=== PATIENT | male | born 1995 | race Caucasian/White ===

== ENCOUNTER 2017-04-08 11:43 | Emergency (ER) | payer SELFPAY ==
[~2017-04-08] VITALS: Ht 165.1 cm; Wt 54.4 kg
[~2017-04-08 11:43] MED LIST: APAP/HYDROCODON1 T13 PO; CLINDAMYCIN HC300 MG PO; COL100 PO; FLA250 PO; IBUPROFEN400 MG PO; KEFLEX500 MG PO; LAC PO
[2017-04-08 11:58] VITALS: BP 100/73
== END 2017-04-08 13:46 | disposition left against medical advice (07) ==
LOC: ED 11:43
DX: Z53.21 Procedure and treatment not carried out due to patient leaving prior to being seen by health care provider (principal)

== ENCOUNTER 2017-10-07 09:20 | Emergency (ER) | payer MEDICAID ==
[~2017-10-07] VITALS: Ht 167.6 cm; Wt 59.0 kg
[2017-10-07 09:28] VITALS: Ht 167.6 cm; Wt 59.0 kg
[2017-10-07 12:52] VITALS: BP 120/74
== END 2017-10-07 12:52 | disposition home or self-care (01) ==
LOC: ED 09:20
DX: S93.401A Sprain of unspecified ligament of right ankle, initial encounter (principal); S16.1XXA Strain of muscle, fascia and tendon at neck level, initial encounter; S20.212A Contusion of left front wall of thorax, initial encounter; M25.561 Pain in right knee; Z90.49 Acquired absence of other specified parts of digestive tract; W22.8XXA Striking against or struck by other objects, initial encounter; Y93.31 Activity, mountain climbing, rock climbing and wall climbing; Y92.89 Other specified places as the place of occurrence of the external cause; Y99.8 Other external cause status
CPT/HCPCS: J1885

== ENCOUNTER 2017-11-24 17:54 | Emergency (ER) | payer MEDICAID ==
[~2017-11-24] VITALS: Ht 165.1 cm; Wt 55.3 kg
[2017-11-24 18:09] VITALS: BP 105/70; Ht 165.1 cm; Wt 55.3 kg
== END 2017-11-24 22:45 | disposition home or self-care (01) ==
LOC: ED 17:54
DX: J20.9 Acute bronchitis, unspecified (principal); Z90.89 Acquired absence of other organs
CPT/HCPCS: J7512; J7613

== ENCOUNTER 2018-12-20 12:34 | Emergency (ER) | payer MEDICAID ==
[~2018-12-20] VITALS: Ht 165.1 cm; Wt 61.2 kg
[2018-12-20 12:50] VITALS: Ht 165.1 cm; Wt 61.2 kg
[2018-12-20 13:36] LABS: PLATELET COUNT 233 x10^3mcL (130-400); RED CELL DISTRIBUTION WIDTH 12.1 % (11.5-14.5)
[2018-12-20 13:38] LABS: CALCIUM 9.4 mg/dL (8.5-10.1); CARBON DIOXIDE 27.4 mmol/L (21-32); CHLORIDE SERUM 101 mmol/L (98-107); CREATININE SERUM 0.8 mg/dL (0.7-1.3); GFR1 > 60 mL/min; GLUCOSE SERUM 113 mg/dL (74-106); POTASSIUM SERUM 4.9 mmol/L (3.5-5.1); SODIUM SERUM 138 mmol/L (136-145)
[2018-12-20 13:44] LABS: ALBUMIN 4.5 g/dL (3.4-5.0); ALKALINE PHOSPHATASE 89 U/L (46-116); ALT/SGPT 34 U/L (16-63); AST/SGOT 29 U/L (15-37); BILIRUBIN TOTAL 0.6 mg/dL (0.20-1.00)
[2018-12-20 13:45] LABS: TOTAL PROTEIN, SERUM 8.3 g/dL (6.4-8.2)
[2018-12-20 13:49] LABS: BASOPHIL % 2.8 % (0-2)
[2018-12-20 15:03] LABS: AMPHETAMINE QUAL UR NONE DETECTED (See below)
[2018-12-20 15:58] VITALS: BP 119/76
== END 2018-12-20 15:58 | disposition home or self-care (01) ==
LOC: ED 12:34
PROVIDERS: Emergency Medicine
DX: T40.2X1A Poisoning by other opioids, accidental (unintentional), initial encounter (principal); G89.29 Other chronic pain; M25.562 Pain in left knee; F12.90 Cannabis use, unspecified, uncomplicated; F13.90 Sedative, hypnotic, or anxiolytic use, unspecified, uncomplicated; Y92.89 Other specified places as the place of occurrence of the external cause; Z90.89 Acquired absence of other organs
CPT/HCPCS: J2405; J3490; J7030